=== PATIENT | female | born 1955 | race Caucasian/White ===

== ENCOUNTER 2020-08-07 13:43 | Outpatient (REF) | payer BC, SELFPAY ==
--- NOTE | 2020-08-07 | PFT_ITS ---
INDICATION: Pulmonary nodule. SPIROMETRY: The FEV1 to FVC 72% post-bronchodilators, 68% pre-bronchodilators with an FEV1 of 2.14 L, which is 90% predicted and an FVC of 2.98 L, which is 96% predicted. No significant response to bronchodilators. Although, she did have significant small airways disease. LUNG VOLUMES: Total lung capacity 100% predicted. DIFFUSION CAPACITY: DLCO 69% predicted. Flow volume loop does have concavity to the expiratory phase, suggesting obstructive physiology. COMPARISONS: None. INTERTRETATION: There is a reversible obstructive ventilatory defect consistent with reactive airway disease or asthma. 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 Significant small airways disease noted as well. Maximum voluntary ventilation within normal limits. Her lung volumes are within normal limits. The patient does have a mild diffusion impairment. Clinical correlation warranted. MD LUCERO Michael/ANGELO / [id number]
== END 2020-08-07 13:44 | disposition home or self-care (01) ==
LOC: HO.RESP 13:43
PROVIDERS: Visit Provider Hospitalist
DX: R91.1 Solitary pulmonary nodule (principal); Z87.891 Personal history of nicotine dependence
CPT/HCPCS: 94060; 94727; 94729

== ENCOUNTER → 2020-08-08 10:31 | Outpatient (BNVA) | payer BC, SELFPAY | PROVIDERS: Visit Provider Surgery | DX: R91.1 Solitary pulmonary nodule (principal); R59.0 Localized enlarged lymph nodes; Z87.891 Personal history of nicotine dependence | CPT/HCPCS: 99211 ==

== ENCOUNTER → 2020-09-19 09:56 | Outpatient (BNVA) | payer BC, SELFPAY | PROVIDERS: PCP Nurse Practitioner Gerontology; Visit Provider Surgery | DX: R91.1 Solitary pulmonary nodule (principal); R59.0 Localized enlarged lymph nodes; Z87.891 Personal history of nicotine dependence | CPT/HCPCS: 99214 ==

== ENCOUNTER → 2021-04-03 09:46 | Outpatient (BNVA) | payer BC, SELFPAY | PROVIDERS: PCP Nurse Practitioner Gerontology; Visit Provider Surgery | DX: R91.1 Solitary pulmonary nodule (principal); C50.919 Malignant neoplasm of unspecified site of unspecified female breast; Z87.891 Personal history of nicotine dependence | CPT/HCPCS: 99212 ==

== ENCOUNTER 2023-01-25 15:43 | Outpatient (REF) | payer BC, SELFPAY ==
--- NOTE | ~2023-01-25 | CT_ITS ---
EXAMINATION: LUNG CANCER SCREENING CT CHEST WITHOUT CONTRAST CLINICAL INFORMATION: Current smoker with 35 pack year history COMPARISON: None TECHNIQUE: Multidetector volumetric CT imaging of the chest was obtained noncontrast using low dose screening CT technique. Axial thin section 0.625 mm reformations in soft tissue and lung windows were obtained. Sagittal and coronal reformations were obtained. Axial MIP images were also created and reviewed. This CT examination was performed using dose optimization techniques as appropriate, variously including the following: *Automated exposure control *Adjustment of mA and/or kV according to patient size (this includes techniques or standardized protocols for targeted exams where dose is matched to indication/reason for exam; i.e. extremities or head) *Use of iterative reconstruction technique TOTAL EXAM DLP: 47 mGy-cm. FINDINGS: PULMONARY NODULES: No suspicious pulmonary nodules. LUNGS / PLEURA: Mild emphysema. Diffuse mild bronchial thickening without bronchiectasis. There is mild pleural-parenchymal scarring and subpleural reticulation in the anterior left upper lobe, likely related to previous radiation treatment (radiation related pulmonary fibrosis). There is a punctate nodule at the medial right lung apex. No suspicious pulmonary nodules. No pleural effusion or pneumothorax. MEDIASTINUM / JUAN: Heart normal in size without pericardial effusion. Great vessels normal caliber. No lymphadenopathy. Coronary calcifications present. Imaged thyroid gland unremarkable. CHEST WALL / AXILLA: Postsurgical changes of the left breast. No axillary lymphadenopathy. UPPER ABDOMEN: Included portions grossly unremarkable allowing for limitations in technique. OSSEOUS STRUCTURES: No acute or suspicious osseous abnormalities. CT/CT lung screening IMPRESSION: * No evidence of pulmonary malignancy. * There are no pulmonary nodules that meet criteria for short interval follow-up at this time. * Mild emphysema. ASSESSMENT: Lung RADS category: 2. Benign appearance or behavior. Nodules with a very low likelihood of becoming a clinically active cancer due to size or lack of growth. Continue annual screening with low-dose CT in 12 months. Probability of malignancy less than 1%. INCIDENTAL FINDINGS (S CATEGORY): None. RECOMMENDATION: Follow up low dose CT chest in 1 year.
== END 2023-01-25 15:44 | disposition home or self-care (01) ==
LOC: HO.CT 15:43
PROVIDERS: PCP Nurse Practitioner Gerontology; Visit Provider Surgery
DX: Z12.2 Encounter for screening for malignant neoplasm of respiratory organs (principal); Z87.891 Personal history of nicotine dependence
CPT/HCPCS: 71271

== ENCOUNTER 2024-02-14 14:55 | Outpatient (REF) | payer MEDICARE, BC, SELFPAY ==
--- NOTE | ~2024-02-14 | CT_ITS ---
EXAMINATION: CT CHEST SCREENING CLINICAL INFORMATION: Quit smoking 17 years ago. History of 1.5 to 2 packs per day with history of 35 pack years. COMPARISON: CT chest and CT lung screening 01/25/2023 and 05/01/2010. CT abdomen 12/25/2009. TECHNIQUE: Multidetector volumetric CT imaging of the chest is performed without contrast using low-dose technique. Additional 2D coronal and sagittal reformatted images and axial 3D maximum intensity projection (MIP) images are generated on the CT workstation. This CT examination was performed using dose optimization techniques as appropriate, variously including the following: *Automated exposure control *Adjustment of mA and/or kV according to patient size (this includes techniques or standardized protocols for targeted exams where dose is matched to indication/reason for exam; i.e. extremities or head) *Use of iterative reconstruction technique DLP: 44 mGy-cm. FINDINGS: LUNGS: Mild emphysema is present along with mild bronchial thickening. There is an unchanged 2 mm benign subpleural right upper lobe nodule (5:233 compare prior 5:233). There is a 3 mm medial right upper lobe nodule at the apex, unchanged (5:97 compare prior 5:89). There is some stable ground-glass change/scarring in the left upper lobe as well as the left lower lobe (5:241 and 268). The lungs are otherwise clear with no evidence of inflammation or suspicious nodules. MEDIASTINUM: The mediastinum is normal. CORONARY ARTERY CALCIFICATION: None visualized on this study. PLEURA: There is no pleural effusion. No pleural mass or thickening. AXILLA: No lymphadenopathy. UPPER ABDOMEN: Unremarkable. Benign subcentimeter water density cyst left kidney. OSSEOUS STRUCTURES: Unremarkable. CT/CT lung screening IMPRESSION: No suspicious finding to suggest malignancy. There are benign small nodular densities, unchanged. ASSESSMENT: Lung-RADS category 2: Benign. RECOMMENDATION: Routine annual low-dose CT screening in 12 months.
== END 2024-02-14 14:56 | disposition home or self-care (01) ==
LOC: HO.CT 14:55
PROVIDERS: PCP Nurse Practitioner Gerontology; Visit Provider Nurse Practitioner Family
DX: Z12.2 Encounter for screening for malignant neoplasm of respiratory organs (principal); F17.210 Nicotine dependence, cigarettes, uncomplicated
CPT/HCPCS: 71271